=== PATIENT | female | born 1945 | race Caucasian/White ===

== ENCOUNTER 2022-05-14 01:14 | Observation (INO) | payer MEDICARE, OTHER ==
--- NOTE | 2022-05-14 02:09 | ERPHSYRPT ---
- History of Present Illness Source: patient, other (Daughter) Exam Limitations: other (Poor historian) Patient Subjective Stated Complaint: PT DAUGHTER STATES THAT PT BP HAS BEEN ELEVATED SINCE 12 AM, RADHA NELSON STATES THAT SHE HAS BEEN SICK TO HER STOMACH AND SHAKEY. JUST BEGAN TAKING ATORVASTATIN AGAIN LAST NIGHT WAS FIRST DOSE. Triage Nursing Assessment: PT IS ALERT AND ORIENTED, STATES HER LEGS ARE SHAKY, HAS NO COMPLAINTS OF PAIN, BP IS 154/88 AT THIS TIME. Physician History: 77 yo wf from assisted living facility w nausea, "shakiness", and mildly elevated blood pressure. Pt alert and oriented x3 upon arrival and in NAD. She denies focal weakness/chest pain/fever/cough/abdominal pain/dysuria/hematuria/melena/hematochezia/vomiting/diarrhea. BP adequate wo need for treatment upon arrival. Timing/Duration: today Severity: mild Modifying Factors: Improves With: nothing Associated Symptoms: denies symptoms, nausea, other (Shakiness) Allergies/Adverse Reactions: No Known Drug Allergies Allergy (Verified 05/14/22 05:02) Home Medications: Atorvastatin Calcium 40 mg PO DAILY 05/14/22 [History] Donepezil HCl 10 mg [Aricept 10 MG] 10 mg PO DAILY 05/14/22 [History] Memantine HCl [Namenda] 10 mg PO BID 05/14/22 [History] risperiDONE [Risperdal] 0.5 mg PO BID 05/14/22 [History] Travel Risk - International Travel Have you traveled outside of the country in past 3 weeks: No - Coronavirus Screening Are you exhibiting any of the following symptoms?: No Close contact with a COVID-19 positive Pt in past 14-21 Days: No - Vaccine Status Have you recieved a Covid-19 vaccination: Yes Belt Operator: Unknown - Vaccination Dates Dates if Unknown: UNKNOWN - Review of Systems Constitutional: No Symptoms Eyes: No Symptoms Ears, Nose, & Throat: No Symptoms Respiratory: No Symptoms Cardiac: No Symptoms Abdominal/Gastrointestinal: No Symptoms, Nausea Genitourinary Symptoms: No Symptoms Musculoskeletal: No Symptoms Skin: No Symptoms Neurological: No Symptoms Psychological: No Symptoms Endocrine: No Symptoms Hematologic/Lymphatic: No Symptoms Immunological/Allergic: No Symptoms - Past Medical History Pertinent Past Medical History: Yes Neurological History: Dementia Cardiac History: High Cholesterol - Past Surgical History Past Surgical History: Yes Other Surgical History: HERNIA SURGERY 2019 - Social History Smoking Status: Never smoker Exposure to second hand smoke: No Drug Use: none Significant Family History: no pertinent family hx - Nursing Vital Signs Nursing Vital Signs: Initial Vital Signs Temperature 97.5 F 05/14/22 01:21 Pain Scale Pain Intensity 0 WNL - Physical Exam General Appearance: no apparent distress, anxiety Eye Exam: PERRL/EOMI, eyes nml inspection Ears, Nose, Throat Exam: normal ENT inspection, TMs normal, pharynx normal, moist mucous membranes Neck Exam: normal inspection, non-tender, supple, full range of motion, No meningismus, No mass, No Brudzinski, No Kernig's Respiratory Exam: normal breath sounds, lungs clear, airway intact, No respiratory distress Cardiovascular Exam: regular rate/rhythm, normal heart sounds, normal peripheral pulses, capillary refill <2 sec, No murmur Gastrointestinal/Abdomen Exam: soft, normal bowel sounds, No tenderness Back Exam: normal inspection, normal range of motion, No CVA tenderness, No vertebral tenderness Extremity Exam: normal inspection, normal range of motion Neurologic Exam: alert, oriented x 3, cooperative, 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, no rmal mood/affect, nml cerebellar function, nml station & gait, sensation nml, No motor deficits, No sensory deficit Skin Exam: normal color, warm, No dry Lymphatic Exam: No adenopathy - Course Nursing assessment & vital signs reviewed: Yes EKG Interpreted by Me: RATE (NSR/Rate66/Normal QT-QTc/Low voltage/No acute St segment changes) - Radiology Exams Chest X-ray Interpretation: Interpreted by me (CXR NAD) Ordered Tests: Active Orders 24 hr Category Date Time Status EKG-ER Only STAT Care 05/14/22 02:00 Completed Heart-Healthy Diet Diet 05/14/22 Breakfast Active CHEST 1 VIEW (PORTABLE) Stat Exams 05/14/22 02:53 Taken BLOOD CULTURE Stat Lab 05/14/22 02:30 Received CBC W DIFF AM.LAB Lab 05/15/22 04:00 Ordered CBC W DIFF Stat Lab 05/14/22 02:15 Completed CMP AM.LAB Lab 05/15/22 04:00 Ordered CMP Stat Lab 05/14/22 02:15 Completed CULTURE,URINE Stat Lab 05/14/22 02:32 Received Lactic Acid AM.LAB Lab 05/15/22 04:00 Ordered Lactic Acid Stat Lab 05/14/22 02:19 Completed NT PRO BNP Stat Lab 05/14/22 02:15 Completed TROPONIN Q4H Lab 05/14/22 02:15 Completed TROPONIN Q4H Lab 05/14/22 03:27 Completed TROPONIN Q4H Lab 05/14/22 10:00 Ordered UA W/RFX CULTURE Stat Lab 05/14/22 02:32 Completed Transfer Order Routine Transfer 05/14/22 Completed Medication Summary Generic Name Dose Route Start Last Admin Trade Name Freq PRN Reason Stop Dose Admin Sodium Chloride 1,000 mls @ 100 mls/hr 05/14/22 04:15 Sodium Chloride 0.9% 1000 Ml IV 06/13/22 04:14 .Q10H ELIAZAR Ceftriaxone Sodium/Dextrose 1 g in 50 mls @ 100 mls/hr 05/14/22 10:00 Rocephin 1 Gm-D5w 50 Ml Bag IV 05/17/22 09:59 Q24H10 ELIAZAR Ondansetron HCl 4 mg 05/14/22 04:09 Ondansetron Hcl 4 Mg/2 Ml Vial IV 06/13/22 04:08 Q6H PRN PRN NAUSEA/VOMITING Discontinued Medications Generic Name Dose Route Start Last Admin Trade Name Freq PRN Reason Stop Dose Admin Ceftriaxone Sodium/Dextrose 1 g in 50 mls @ 100 mls/hr 05/14/22 04:08 05/14/22 04:31 Rocephin 1 Gm-D5w 50 Ml Bag IV 05/14/22 04:37 100 ml/hr STAT STA 100 mls/hr Administration Sodium Chloride 1,000 mls @ 999 mls/hr 05/14/22 04:12 05/14/22 04:31 Sodium Chloride 0.9% 1000 Ml IV 05/14/22 05:12 999 mls/hr .Q1H1M STA Administration Lab/Rad Data: Laboratory Result Diagrams 05/14/22 02:15 05/14/22 02:15 Laboratory Results 05/14/22 05/14/22 05/14/22 Range/Units 03:27 02:32 02:19 WBC (4.0-10.5) x10^3/uL RBC (4.1-5.4) x10^6/uL Hgb (12.0-16.0) g/dL Hct (35-47) % MCV (78-100) fL MCH (26-32) pg MCHC (32-36) g/dL RDW (11.5-14.0) % Plt Count (150-450) x10^3/uL MPV (7.5-11.0) fL Gran % (36.0-66.0) % Immature Gran % (Auto) (0.00-0.4) % Nucleat RBC Rel Count (0.00-0.1) % Eos # (Auto) (0-0.5) x10^3/uL Immature Gran # (Auto) (0.00-0.03) x10^3u/L Absolute Lymphs (auto) (1.0-4.6) x10^3/uL Absolute Monos (auto) (0.0-1.3) x10^3/uL Absolute Nucleated RBC (0.00-0.01) x10^3u/L Lymphocytes % (24.0-44.0) % Monocytes % (0.0-12.0) % Eosinophils % (0.00-5.0) % Basophils % (0.0-0.4) % Absolute Granulocytes (1.4-6.9) x10^3/uL Basophils # (0-0.4) x10^3/uL Sodium (137-145) mmol/L Potassium (3.5-5.1) mmol/L Chloride (98-107) mmol/L Carbon Dioxide (22-30) mmol/L Anion Gap (5-15) MEQ/L BUN (7-17) mg/dL Creatinine (0.52-1.04) mg/dL Estimated GFR ML/MIN Glucose (74-106) mg/dL Lactic Acid 1.2 (0.4-2.0) Calcium (8.4-10.2) mg/dL Total Bilirubin (0.2-1.3) mg/dL AST (14-36) U/L ALT (0-35) U/L Alkaline Phosphatase (38-126) U/L Troponin I 0.047 H* (0.000-0.034) ng/mL NT-Pro-B Natriuret Pep (0-1800) pg/mL Serum Total Protein (6.3-8.2) g/dL Albumin (3.5-5.0) g/dL Urinalys Dipstick Clnc MAIN LAB Urine Color YELLOW (YELLOW) Urine Appearance CLEAR (CLEAR) Urine pH 7.0 (5-6) Ur Specific [place] 1.025 (1.005-1.025) POC Urine Protein Conf NEGATIVE (Negative) Urine Ketones NEGATIVE (NEGATIVE) Urine Nitrite NEGATIVE (NEGATIVE) Urine Bilirubin NEGATIVE (NEGATIVE) Urine Urobilinogen 0.2 (0-1) mg/dL Urine Leukocytes NEGATIVE (NEGATIVE) Urine WBC (Auto) 6-10 A (0-5) /HPF Urine RBC (Auto) 0-2 (0-2) /HPF U Epithel Cells (Auto) RARE (FEW) /HPF Urine Bacteria (Auto) PACKED A (NEGATIVE) /HPF Urine RBC NEGATIVE (0-5) Luis Enrique/ul Urine Mucus (Auto) SLIGHT A (NEGATIVE) /HPF Ur Culture Indicated? YES Urine Glucose NEGATIVE (NEGATIVE) mg/dL Influenza Type A Ag (NEGATIVE) Influenza Type B Ag (NEGATIVE) RSV (PCR) (Negative) SARS-CoV-2 (PCR) (NEGATIVE) 05/14/22 05/14/22 05/14/22 Range/Units 02:15 02:15 02:15 WBC 8.7 (4.0-10.5) x10^3/uL RBC 4.58 (4.1-5.4) x10^6/uL Hgb 14.5 (12.0-16.0) g/dL Hct 44.9 (35-47) % MCV 98.0 (78-100) fL MCH 31.7 (26-32) pg MCHC 32.3 (32-36) g/dL RDW 13.4 (11.5-14.0) % Plt Count 181 (150-450) x10^3/uL MPV 10.2 (7.5-11.0) fL Gran % 80.2 H (36.0-66.0) % Immature Gran % (Auto) 0.5 H (0.00-0.4) % Nucleat RBC Rel Count 0.0 (0.00-0.1) % Eos # (Auto) 0.08 (0-0.5) x10^3/uL Immature Gran # (Auto) 0.04 H (0.00-0.03) x10^3u/L Absolute Lymphs (auto) 0.98 L (1.0-4.6) x10^3/uL Absolute Monos (auto) 0.55 (0.0-1.3) x10^3/uL Absolute Nucleated RBC 0.00 (0.00-0.01) x10^3u/L Lymphocytes % 11.3 L (24.0-44.0) % Monocytes % 6.4 (0.0-12.0) % Eosinophils % 0.9 (0.00-5.0) % Basophils % 0.7 (0.0-0.4) % Absolute Granulocytes 6.94 H (1.4-6.9) x10^3/uL Basophils # 0.06 (0-0.4) x10^3/uL Sodium 134 L (137-145) mmol/L Potassium 3.5 (3.5-5.1) mmol/L Chloride 102 (98-107) mmol/L Carbon Dioxide 28 (22-30) mmol/L Anion Gap 8.1 (5-15) MEQ/L BUN 12 (7-17) mg/dL Creatinine 0.53 (0.52-1.04) mg/dL Estimated GFR > 60.0 ML/MIN Glucose 134 H (74-106) mg/dL Lactic Acid (0.4-2.0) Calcium 8.6 (8.4-10.2) mg/dL Total Bilirubin 0.60 (0.2-1.3) mg/dL AST 51 H (14-36) U/L ALT 53 H (0-35) U/L Alkaline Phosphatase 124 (38-126) U/L Troponin I 0.042 H* (0.000-0.034) ng/mL NT-Pro-B Natriuret Pep 96.7 (0-1800) pg/mL Serum Total Protein 7.3 (6.3-8.2) g/dL Albumin 3.9 (3.5-5.0) g/dL Urinalys Dipstick Clnc Urine Color (YELLOW) Urine Appearance (CLEAR) Urine pH (5-6) Ur Specific [place] (1.005-1.025) POC Urine Protein Conf (Negative) Urine Ketones (NEGATIVE) Urine Nitrite (NEGATIVE) Urine Bilirubin (NEGATIVE) Urine Urobilinogen (0-1) mg/dL Urine Leukocytes (NEGATIVE) Urine WBC (Auto) (0-5) /HPF Urine RBC (Auto) (0-2) /HPF U Epithel Cells (Auto) (FEW) /HPF Urine Bacteria (Auto) (NEGATIVE) /HPF Urine RBC (0-5) Luis Enrique/ul Urine Mucus (Auto) (NEGATIVE) /HPF Ur Culture Indicated? Urine Glucose (NEGATIVE) mg/dL Influenza Type A Ag NEGATIVE (NEGATIVE) Influenza Type B Ag NEGATIVE (NEGATIVE) RSV (PCR) NEGATIVE (Negative) SARS-CoV-2 (PCR) NEGATIVE (NEGATIVE) - Progress Progress: improved Progress Note: 05/14/22 04:13 1L NS bolus 1gm IV Rocephin Pt w elevated troponin but no significant increase w 2nd troponin result. She had no chest pain or dyspnea in ER. DNR per Pt and daughter Discussed with : Dannie Will see patient in: hospital (observation) Counseled pt/family regarding: lab results, diagnosis, rad results - Departure Departure Disposition: Observation Clinical Impression: UTI (urinary tract infection) Condition: Stable Critical Care Time: No
[2022-05-14 02:17] LABS: Absolute Neutrophil Ct (ANC) 6.94 x10^3/uL (1.4-6.9); Basophil (Absolute #) 0.06 x10^3/uL (0-0.4); Eosinophil % 0.9 % (0.00-5.0); Eosinophil (Absolute #) 0.08 x10^3/uL (0-0.5); Hematocrit 44.9 % (35-47); Hemoglobin 14.5 g/dL (12.0-16.0); Lymphocyte (Absolute #) 0.98 x10^3/uL (1.0-4.6); Lymphocytes % 11.3 % (24.0-44.0); Mean Corpuscular Hemoglobin 31.7 pg (26-32); Mean Corpuscular Hgb Concent. 32.3 g/dL (32-36); Mean Platelet Volume 10.2 fL (7.5-11.0); Monocyte (Absolute #) 0.55 x10^3/uL (0.0-1.3); Monocytes % 6.4 % (0.0-12.0); Neutrophil % 80.2 % (36.0-66.0); Platelet Count 181 x10^3/uL (150-450); Red Blood Count 4.58 x10^6/uL (4.1-5.4); Red Cell Distribution Width 13.4 % (11.5-14.0); White Blood Count 8.7 x10^3/uL (4.0-10.5)
[2022-05-14 02:42] LABS: ALBUMIN 3.9 g/dL (3.5-5.0); ALKALINE PHOSPHATASE 124 U/L (38-126); ANION GAP 8.1 MEQ/L (5-15); BLOOD UREA NITROGEN 12 mg/dL (7-17); CHLORIDE 102 mmol/L (98-107); Calcium 8.6 mg/dL (8.4-10.2); Carbon Dioxide 28 mmol/L (22-30); Creatinine 1 0.53 mg/dL (0.52-1.04); EST GLOMERULAR FILTRATION RATE > 60.0 ML/MIN; Glucose 134 mg/dL (74-106); NT PRO BNP 96.7 pg/mL (0-1800); Potassium 3.5 mmol/L (3.5-5.1); SGOT/AST 51 U/L (14-36); SGPT/ALT 53 U/L (0-35); SODIUM 134 mmol/L (137-145); Total Protein 7.3 g/dL (6.3-8.2)
[2022-05-14 02:45] LABS: TROPONIN 0.042 ng/mL (0.000-0.034)
[2022-05-14 02:54] LABS: Appearance CLEAR (CLEAR); Bilirubin NEGATIVE (NEGATIVE); Glucose NEGATIVE (NEGATIVE); Ketones NEGATIVE (NEGATIVE); Specific Gravity 1.025 (1.005-1.025)
[2022-05-14 02:55] LABS: Dipstick done @ ? MAIN LAB; Nitrite NEGATIVE (NEGATIVE); Protein,Urine Dip NEGATIVE (Negative); RBC NEGATIVE Ery/ul (0-5); Urobilinogen 0.2 mg/dL (0-1)
[2022-05-14 02:56] LABS: INFLUENZA A NEGATIVE (NEGATIVE); INFLUENZA B NEGATIVE (NEGATIVE); RESPIRATORY SYNCTIAL VIRUS NEGATIVE (Negative); SARS-CoV-2 Xpert Express NEGATIVE (NEGATIVE)
[2022-05-14 02:59] LABS: Bacteria PACKED /HPF (NEGATIVE); Epithelial Cells RARE /HPF (FEW); Mucus SLIGHT /HPF (NEGATIVE); RBC 0-2 /HPF (0-2); Urine Cultured Indicated? YES
[2022-05-14] MEDS ORDERED: ROCEPHIN 1 Gm-D5w 50 ml Bag** 1 G/50 ML IVPB IV STA (04:08)
[2022-05-14] MEDS ORDERED: Zofran 4 MG/2 ML VIAL IV PRN (04:09)
[2022-05-14] MEDS ORDERED: Sodium Chloride 0.9% 1000 ML 1,000 ML IV STA (04:12)
--- NOTE | 2022-05-14 09:16 | PCM.HP ---
History of Present Illness - Chief Complaint Chief Complaint: c/o nausea, fever with chills for 1-2 days History of Present Illness: is a 77 year old female.from assisted living facility w nausea, "shakiness", and mildly elevated blood pressure. She denies focal weakness/chest pain/fever/cough/abdominal pain/dysuria/hematuria/melena/hematochezia/vomiting/diarrhea. - Review of Systems Constitutional: Fever, Chills, Weakness Eyes: No Symptoms Ears, Nose, & Throat: No Symptoms Respiratory: No Cough, No Short Of Breath Cardiac: No Chest Pain, No Edema, No Syncope Abdominal/Gastrointestinal: Nausea, No Abdominal Pain, No Vomiting, No Diarrhea Genitourinary Symptoms: No Dysuria Musculoskeletal: No Back Pain, No Neck Pain Skin: No Rash Neurological: No Dizziness, No Focal Weakness, No Sensory Changes Psychological: No Symptoms Endocrine: No Symptoms Hematologic/Lymphatic: No Symptoms Immunological/Allergic: No Symptoms Medications & Allergies Home Medications: Home Medication List Atorvastatin Calcium 40 mg PO DAILY 05/14/22 [History Confirmed 05/14/22] Donepezil HCl 10 mg [Aricept 10 MG] 10 mg PO DAILY 05/14/22 [History Confirmed 05/14/22] Memantine HCl [Namenda] 10 mg PO BID 05/14/22 [History Confirmed 05/14/22] risperiDONE [Risperdal] 0.5 mg PO BID 05/14/22 [History Confirmed 05/14/22] Allergies/Adverse Reactions: Allergies Allergy/AdvReac Type Severity Reaction Status Date / Time No Known Drug Allergies Allergy Verified 05/14/22 05:02 - Past Medical History Past Medical History: Yes Neurological History: Dementia ENT History: No Pertinent History Cardiac History: High Cholesterol Respiratory History: No Pertinent History Endocrine Medical History: No Pertinent History Musculoskelatal History: No Pertinent History GI Medical History: No Pertinent History History: No Pertinent History Pyscho-Social History: No Pertinent History Reproductive Disorders: No Pertinent History Comment: Pt poor historian. - Female History Are you now?: No - Past Surgical History Past Surgical History: Yes Neuro Surgical History: No Pertinent History Cardiac History: No Pertinent History Respiratory Surgery: No Pertinent History GI Surgical History: Hernia Repair Genitourinary Surgical Hx: No Pertinent History Musculskeletal Surgical Hx: No Pertinent History Female Surgical History: Tubal Ligation Other Surgical History: HERNIA SURGERY 2019 - Social History Smoking Status: Never smoker Exposure to second hand smoke: No Alcohol: None Drug Use: none Significant Family History: no pertinent family hx - Physical Exam Vital Signs: Vital Signs - 24 hr Temp Pulse Resp BP Pulse Ox 05/14/22 07:29 97.8 F 78 20 165/84 94 L 05/14/22 05:06 97.3 F 73 19 158/84 97 05/14/22 04:08 80 18 151/96 94 L 05/14/22 03:11 71 20 151/96 94 L 05/14/22 02:34 81 22 118/58 99 05/14/22 01:21 97.5 F General Appearance: no apparent distress, alert Neurologic Exam: alert, oriented x 3, cooperative, normal mood/affect, nml cerebellar function, nml station & gait, sensation nml, No motor deficits Eye Exam: PERRL/EOMI, eyes nml inspection Ears, Nose, Throat Exam: normal ENT inspection, TMs normal, pharynx normal, moist mucous membranes Neck Exam: normal inspection, non-tender, supple, full range of motion Respiratory Exam: normal breath sounds, lungs clear, No respiratory distress Cardiovascular Exam: regular rate/rhythm, normal heart sounds, normal peripheral pulses Gastrointestinal/Abdomen Exam: soft, normal bowel sounds, No tenderness, No mass Back Exam: normal inspection, normal range of motion, No CVA tenderness, No vertebral tenderness Extremity Exam: normal inspection, normal range of motion, pelvis stable Skin Exam: normal color, warm, dry, No rash Lymphatic Exam: No adenopathy Results - Labs Lab/Micro Results: Lab Results-Last 24 Hours 05/14/22 05/14/22 05/14/22 Range/Units 02:15 02:15 02:15 WBC 8.7 (4.0-10.5) x10^3/uL RBC 4.58 (4.1-5.4) x10^6/uL Hgb 14.5 (12.0-16.0) g/dL Hct 44.9 (35-47) % MCV 98.0 (78-100) fL MCH 31.7 (26-32) pg MCHC 32.3 (32-36) g/dL RDW 13.4 (11.5-14.0) % Plt Count 181 (150-450) x10^3/uL MPV 10.2 (7.5-11.0) fL Gran % 80.2 H (36.0-66.0) % Immature Gran % (Auto) 0.5 H (0.00-0.4) % Nucleat RBC Rel Count 0.0 (0.00-0.1) % Eos # (Auto) 0.08 (0-0.5) x10^3/uL Immature Gran # (Auto) 0.04 H (0.00-0.03) x10^3u/L Absolute Lymphs (auto) 0.98 L (1.0-4.6) x10^3/uL Absolute Monos (auto) 0.55 (0.0-1.3) x10^3/uL Absolute Nucleated RBC 0.00 (0.00-0.01) x10^3u/L Lymphocytes % 11.3 L (24.0-44.0) % Monocytes % 6.4 (0.0-12.0) % Eosinophils % 0.9 (0.00-5.0) % Basophils % 0.7 (0.0-0.4) % Absolute Granulocytes 6.94 H (1.4-6.9) x10^3/uL Basophils # 0.06 (0-0.4) x10^3/uL Sodium 134 L (137-145) mmol/L Potassium 3.5 (3.5-5.1) mmol/L Chloride 102 (98-107) mmol/L Carbon Dioxide 28 (22-30) mmol/L Anion Gap 8.1 (5-15) MEQ/L BUN 12 (7-17) mg/dL Creatinine 0.53 (0.52-1.04) mg/dL Estimated GFR > 60.0 ML/MIN Glucose 134 H (74-106) mg/dL Lactic Acid (0.4-2.0) Calcium 8.6 (8.4-10.2) mg/dL Total Bilirubin 0.60 (0.2-1.3) mg/dL AST 51 H (14-36) U/L ALT 53 H (0-35) U/L Alkaline Phosphatase 124 (38-126) U/L Troponin I 0.042 H* (0.000-0.034) ng/mL NT-Pro-B Natriuret Pep 96.7 (0-1800) pg/mL Serum Total Protein 7.3 (6.3-8.2) g/dL Albumin 3.9 (3.5-5.0) g/dL Urinalys Dipstick Clnc Urine Color (YELLOW) Urine Appearance (CLEAR) Urine pH (5-6) Ur Specific Salmon (1.005-1.025) POC Urine Protein Conf (Negative) Urine Ketones (NEGATIVE) Urine Nitrite (NEGATIVE) Urine Bilirubin (NEGATIVE) Urine Urobilinogen (0-1) mg/dL Urine Leukocytes (NEGATIVE) Urine WBC (Auto) (0-5) /HPF Urine RBC (Auto) (0-2) /HPF U Epithel Cells (Auto) (FEW) /HPF Urine Bacteria (Auto) (NEGATIVE) /HPF Urine RBC (0-5) Luis Enrique/ul Urine Mucus (Auto) (NEGATIVE) /HPF Ur Culture Indicated? Urine Glucose (NEGATIVE) mg/dL Influenza Type A Ag NEGATIVE (NEGATIVE) Influenza Type B Ag NEGATIVE (NEGATIVE) RSV (PCR) NEGATIVE (Negative) SARS-CoV-2 (PCR) NEGATIVE (NEGATIVE) 05/14/22 05/14/22 05/14/22 Range/Units 02:19 02:32 03:27 WBC (4.0-10.5) x10^3/uL RBC (4.1-5.4) x10^6/uL Hgb (12.0-16.0) g/dL Hct (35-47) % MCV (78-100) fL MCH (26-32) pg MCHC (32-36) g/dL RDW (11.5-14.0) % Plt Count (150-450) x10^3/uL MPV (7.5-11.0) fL Gran % (36.0-66.0) % Immature Gran % (Auto) (0.00-0.4) % Nucleat RBC Rel Count (0.00-0.1) % Eos # (Auto) (0-0.5) x10^3/uL Immature Gran # (Auto) (0.00-0.03) x10^3u/L Absolute Lymphs (auto) (1.0-4.6) x10^3/uL Absolute Monos (auto) (0.0-1.3) x10^3/uL Absolute Nucleated RBC (0.00-0.01) x10^3u/L Lymphocytes % (24.0-44.0) % Monocytes % (0.0-12.0) % Eosinophils % (0.00-5.0) % Basophils % (0.0-0.4) % Absolute Granulocytes (1.4-6.9) x10^3/uL Basophils # (0-0.4) x10^3/uL Sodium (137-145) mmol/L Potassium (3.5-5.1) mmol/L Chloride (98-107) mmol/L Carbon Dioxide (22-30) mmol/L Anion Gap (5-15) MEQ/L BUN (7-17) mg/dL Creatinine (0.52-1.04) mg/dL Estimated GFR ML/MIN Glucose (74-106) mg/dL Lactic Acid 1.2 (0.4-2.0) Calcium (8.4-10.2) mg/dL Total Bilirubin (0.2-1.3) mg/dL AST (14-36) U/L ALT (0-35) U/L Alkaline Phosphatase (38-126) U/L Troponin I 0.047 H* (0.000-0.034) ng/mL NT-Pro-B Natriuret Pep (0-1800) pg/mL Serum Total Protein (6.3-8.2) g/dL Albumin (3.5-5.0) g/dL Urinalys Dipstick Clnc MAIN LAB Urine Color YELLOW (YELLOW) Urine Appearance CLEAR (CLEAR) Urine pH 7.0 (5-6) Ur Specific Sal[place] 1.025 (1.005-1.025) POC Urine Protein Conf NEGATIVE (Negative) Urine Ketones NEGATIVE (NEGATIVE) Urine Nitrite NEGATIVE (NEGATIVE) Urine Bilirubin NEGATIVE (NEGATIVE) Urine Urobilinogen 0.2 (0-1) mg/dL Urine Leukocytes NEGATIVE (NEGATIVE) Urine WBC (Auto) 6-10 A (0-5) /HPF Urine RBC (Auto) 0-2 (0-2) /HPF U Epithel Cells (Auto) RARE (FEW) /HPF Urine Bacteria (Auto) PACKED A (NEGATIVE) /HPF Urine RBC NEGATIVE (0-5) Luis Enrique/ul Urine Mucus (Auto) SLIGHT A (NEGATIVE) /HPF Ur Culture Indicated? YES Urine Glucose NEGATIVE (NEGATIVE) mg/dL Influenza Type A Ag (NEGATIVE) Influenza Type B Ag (NEGATIVE) RSV (PCR) (Negative) SARS-CoV-2 (PCR) (NEGATIVE) - Radiology Impressions Radiology Exams & Impressions: Radiology Procedures Category Date Time Status CHEST 1 VIEW (PORTABLE) Stat Exams 05/14/22 02:53 Taken Assessment/Plan (1) UTI (urinary tract infection) Current Visit: Yes Status: Acute Qualifiers: Urinary tract infection type: acute pyelonephritis Qualified Code(s): N10 - Acute pyelonephritis Assessment & Plan: Chief Complaint Diagnosis c/o nausea, fever with chills for 1-2 days Allergies Allergy/AdvReac Type Severity Reaction Status Date / Time No Known Drug Allergies Allergy Verified 05/14/22 05:02 Vital Signs (Last 24 hours) Temp Pulse Resp BP Pulse Ox 05/14/22 07:29 97.8 F 78 20 165/84 94 L 05/14/22 05:06 97.3 F 73 19 158/84 97 05/14/22 04:08 80 18 151/96 94 L 05/14/22 03:11 71 20 151/96 94 L 05/14/22 02:34 81 22 118/58 99 05/14/22 01:21 97.5 F Home Medications Medication Instructions Recorded Confirmed Last Taken Type Atorvastatin Calcium 40 mg PO DAILY 05/14/22 05/14/22 05/13/22 20:00 History Donepezil HCl 10 mg [Aricept 10 10 mg PO DAILY 05/14/22 05/14/22 05/13/22 20:00 History MG] Memantine HCl [Namenda] 10 mg PO BID 05/14/22 05/14/22 05/13/22 20:00 History risperiDONE [Risperdal] 0.5 mg PO BID 05/14/22 05/14/22 05/13/22 20:00 History Current Medications Generic Name Dose Route Start Last Admin Trade Name Freq PRN Reason Stop Dose Admin Sodium Chloride 1,000 mls @ 100 mls/hr 05/14/22 04:15 Sodium Chloride 0.9% 1000 Ml IV 06/13/22 04:14 .Q10H ELIAZAR Ceftriaxone Sodium/Dextrose 1 g in 50 mls @ 100 mls/hr 05/14/22 22:00 Rocephin 1 Gm-D5w 50 Ml Bag IV 05/17/22 21:59 HS ELIAZAR Ondansetron HCl 4 mg 05/14/22 04:09 Ondansetron Hcl 4 Mg/2 Ml Vial IV 06/13/22 04:08 Q6H PRN PRN NAUSEA/VOMITING Discontinued Medications Generic Name Dose Route Start Last Admin Trade Name Freq PRN Reason Stop Dose Admin Ceftriaxone Sodium/Dextrose 1 g in 50 mls @ 100 mls/hr 05/14/22 04:08 05/14/22 04:31 Rocephin 1 Gm-D5w 50 Ml Bag IV 05/14/22 04:37 100 ml/hr STAT STA 100 mls/hr Administration Sodium Chloride 1,000 mls @ 999 mls/hr 05/14/22 04:12 05/14/22 04:31 Sodium Chloride 0.9% 1000 Ml IV 05/14/22 05:12 999 mls/hr .Q1H1M STA Administration Intake & Output (Last 24 hours) 05/11/22 05/12/22 05/13/22 05/14/22 11:59 11:59 11:59 11:59 Output Total 300 Balance -300 Weight 75.2 kg Microbiology Results (Last 24 hours) 05/14/22 04:18 Blood Blood Culture Gram Stain - Pending 05/14/22 04:18 Blood Blood Culture - Pending 05/14/22 02:32 Urine, Void Urine Culture - Pending Laboratory Results (Last 24 hours) 05/14/22 05/14/22 05/14/22 03:27 02:32 02:19 WBC RBC Hgb Hct MCV MCH MCHC RDW Plt Count MPV Gran % Immature Gran % (Auto) Nucleat RBC Rel Count Eos # (Auto) Immature Gran # (Auto) Absolute Lymphs (auto) Absolute Monos (auto) Absolute Nucleated RBC Lymphocytes % Monocytes % Eosinophils % Basophils % Absolute Granulocytes Basophils # Sodium Potassium Chloride Carbon Dioxide Anion Gap BUN Creatinine Estimated GFR Glucose Lactic Acid 1.2 Calcium Total Bilirubin AST ALT Alkaline Phosphatase Troponin I 0.047 H* NT-Pro-B Natriuret Pep Serum Total Protein Albumin Urinalys Dipstick Clnc MAIN LAB Urine Color YELLOW Urine Appearance CLEAR Urine pH 7.0 Ur Specific [place] 1.025 POC Urine Protein Conf NEGATIVE Urine Ketones NEGATIVE Urine Nitrite NEGATIVE Urine Bilirubin NEGATIVE Urine Urobilinogen 0.2 Urine Leukocytes NEGATIVE Urine WBC (Auto) 6-10 A Urine RBC (Auto) 0-2 U Epithel Cells (Auto) RARE Urine Bacteria (Auto) PACKED A Urine RBC NEGATIVE Urine Mucus (Auto) SLIGHT A Ur Culture Indicated? YES Urine Glucose NEGATIVE Influenza Type A Ag Influenza Type B Ag RSV (PCR) SARS-CoV-2 (PCR) 05/14/22 05/14/22 05/14/22 02:15 02:15 02:15 WBC 8.7 RBC 4.58 Hgb 14.5 Hct 44.9 MCV 98.0 MCH 31.7 MCHC 32.3 RDW 13.4 Plt Count 181 MPV 10.2 Gran % 80.2 H Immature Gran % (Auto) 0.5 H Nucleat RBC Rel Count 0.0 Eos # (Auto) 0.08 Immature Gran # (Auto) 0.04 H Absolute Lymphs (auto) 0.98 L Absolute Monos (auto) 0.55 Absolute Nucleated RBC 0.00 Lymphocytes % 11.3 L Monocytes % 6.4 Eosinophils % 0.9 Basophils % 0.7 Absolute Granulocytes 6.94 H Basophils # 0.06 Sodium 134 L Potassium 3.5 Chloride 102 Carbon Dioxide 28 Anion Gap 8.1 BUN 12 Creatinine 0.53 Estimated GFR > 60.0 Glucose 134 H Lactic Acid Calcium 8.6 Total Bilirubin 0.60 AST 51 H ALT 53 H Alkaline Phosphatase 124 Troponin I 0.042 H* NT-Pro-B Natriuret Pep 96.7 Serum Total Protein 7.3 Albumin 3.9 Urinalys Dipstick Clnc Urine Color Urine Appearance Urine pH Ur Specific [place] POC Urine Protein Conf Urine Ketones Urine Nitrite Urine Bilirubin Urine Urobilinogen Urine Leukocytes Urine WBC (Auto) Urine RBC (Auto) U Epithel Cells (Auto) Urine Bacteria (Auto) Urine RBC Urine Mucus (Auto) Ur Culture Indicated? Urine Glucose Influenza Type A Ag NEGATIVE Influenza Type B Ag NEGATIVE RSV (PCR) NEGATIVE SARS-CoV-2 (PCR) NEGATIVE Orders (Last 24 hours) Category Date Time Status Code Status Order ROUTINE Care 05/14/22 04:09 Active EKG-ER Only STAT Care 05/14/22 02:00 Completed IV Care Q6H Care 05/14/22 04:[address] in Observation ROUTINE Care 05/14/22 04:09 Active Metal Tank Builder/Discharge Plan ROUTINE Cons 05/16/22 10:00 Active Heart-Healthy Diet Diet 05/14/22 Breakfast Active CHEST 1 VIEW (PORTABLE) Stat Exams 05/14/22 02:53 Taken BLOOD CULTURE Stat Lab 05/14/22 02:30 Received CBC W DIFF AM.LAB Lab 05/15/22 04:00 Ordered CBC W DIFF Stat Lab 05/14/22 02:15 Completed CMP AM.LAB Lab 05/15/22 04:00 Ordered CMP Stat Lab 05/14/22 02:15 Completed COVID/FLU/RSV Panel Stat Lab 05/14/22 02:15 Completed CULTURE,URINE Stat Lab 05/14/22 02:32 Received Lactic Acid AM.LAB Lab 05/15/22 04:00 Ordered Lactic Acid Stat Lab 05/14/22 02:19 Completed NT PRO BNP Stat Lab 05/14/22 02:15 Completed TROPONIN Q4H Lab 05/14/22 02:15 Completed TROPONIN Q4H Lab 05/14/22 03:27 Completed TROPONIN Q4H Lab 05/14/22 10:00 Ordered UA W/RFX CULTURE Stat Lab 05/14/22 02:32 Completed Ceftriaxone 1 GM/50 ML PREMIX* [ROCEPHIN 1 Gm-D5w 50 ml Med 05/14/22 22:00 Active Bag] 1 g in 50 ml IV HS Ceftriaxone 1 GM/50 ML PREMIX* [ROCEPHIN 1 Gm-D5w 50 ml Med 05/14/22 04:08 Discontinued Bag] 1 g in 50 ml IV STAT NaCl 0.9% 1000 ml [Sodium Chloride 0.9% 1000 ML] 1,000 Med 05/14/22 04:15 Active ml IV 100 mls/hr NaCl 0.9% 1000 ml [Sodium Chloride 0.9% 1000 ML] 1,000 Med 05/14/22 04:12 Discontinued ml IV 999 mls/hr Ondansetron HCl 4 mg/2 ml [Zofran 4 MG/2 ML VIAL] Med 05/14/22 04:09 Active 4 mg IV Q6H PRN PRN Transfer Order Routine Transfer 05/14/22 Completed Code(s): N39.0 - URINARY TRACT INFECTION, SITE NOT SPECIFIED
--- NOTE | 2022-05-14 09:28 | XRAY ---
Indication: High blood pressure. Elevated troponins. Comparison: None Portable chest hyperinflated without focal infiltrate, consolidation, or large effusion. Tiny right costophrenic angle calcified granuloma. Heart not enlarged with incidental right perihilar calcified nodes. Bony thorax intact with mild osteopenia, degenerative changes, and mild levoscoliosis. Impression: Nonacute hyperinflated chest with chronic features.
[2022-05-14] MEDS: Sodium Chloride 0.9% 1000 ML 1,000 ML IV SCH ×2 (15:18→19:36)
[2022-05-14] MEDS: Aricept 10 MG PO SCH (16:18)
[2022-05-14] MEDS: ZOCOR 20MG PO SCH (16:18)
[2022-05-14] MEDS: Risperdal 1 MG PO SCH (21:54)
[2022-05-14] MEDS: Namenda 5 MG PO SCH (21:54)
[2022-05-14] MEDS ORDERED: ROCEPHIN 1 Gm-D5w 50 ml Bag** 1 G/50 ML IVPB IV SCH (22:00)
[2022-05-14] MEDS ORDERED: NON-FORMULARY ITEM (Risperidone [Risperdal] 0.5 MG Tablet) PO SCH (22:00)
[2022-05-14] MEDS ORDERED: NON-FORMULARY ITEM (Memantine Hcl [Namenda] 10 MG Tablet) PO SCH (22:00)
[2022-05-15] MEDS: Sodium Chloride 0.9% 1000 ML 1,000 ML IV SCH (01:01)
[2022-05-15 06:16] LABS: Basophil (Absolute #) 0.09 x10^3/uL (0-0.4); Eosinophil % 2.7 % (0.00-5.0); Eosinophil (Absolute #) 0.19 x10^3/uL (0-0.5); Hematocrit 41.9 % (35-47); Lymphocyte (Absolute #) 1.77 x10^3/uL (1.0-4.6); Lymphocytes % 25.6 % (24.0-44.0); Mean Cell Volume 96.8 fL (78-100); Mean Corpuscular Hemoglobin 32.3 pg (26-32); Mean Corpuscular Hgb Concent. 33.4 g/dL (32-36); Mean Platelet Volume 10.4 fL (7.5-11.0); Monocyte (Absolute #) 0.64 x10^3/uL (0.0-1.3); Monocytes % 9.3 % (0.0-12.0); Neutrophil % 60.8 % (36.0-66.0); Platelet Count 185 x10^3/uL (150-450); Red Blood Count 4.33 x10^6/uL (4.1-5.4); Red Cell Distribution Width 13.7 % (11.5-14.0); White Blood Count 6.9 x10^3/uL (4.0-10.5)
[2022-05-15 06:46] LABS: ALBUMIN 3.3 g/dL (3.5-5.0); ALKALINE PHOSPHATASE 106 U/L (38-126); ANION GAP 7.5 MEQ/L (5-15); BLOOD UREA NITROGEN 11 mg/dL (7-17); CHLORIDE 109 mmol/L (98-107); Calcium 8.5 mg/dL (8.4-10.2); Carbon Dioxide 24 mmol/L (22-30); EST GLOMERULAR FILTRATION RATE > 60.0 ML/MIN; Glucose 96 mg/dL (74-106); Potassium 3.5 mmol/L (3.5-5.1); SGOT/AST 44 U/L (14-36); SGPT/ALT 43 U/L (0-35); SODIUM 138 mmol/L (137-145); Total Protein 6.3 g/dL (6.3-8.2)
[2022-05-15] MEDS ORDERED: LIPITOR 40MG PO SCH (10:00)
[2022-05-15] MEDS: Namenda 5 MG PO SCH (10:34)
[2022-05-15] MEDS: Aricept 10 MG PO SCH (10:34)
[2022-05-15] MEDS: Risperdal 1 MG PO SCH (10:34)
[2022-05-15] MEDS: ZOCOR 20MG PO SCH (10:35)
[2022-05-15 11:58] VITALS: BP 122/82; PULSE 69; O2SAT 95
== END 2022-05-15 12:50 | disposition home or self-care (01) ==
LOC: ED 01:14 → MED SURG 04:39
PROVIDERS: ADMIT General Practice; ATTEND General Practice
DX: N10 Acute pyelonephritis (principal); N39.0 Urinary tract infection, site not specified; I10 Essential (primary) hypertension; E78.00 Pure hypercholesterolemia, unspecified; R77.8 Other specified abnormalities of plasma proteins; Z79.899 Other long term (current) drug therapy; Z20.828 Contact with and (suspected) exposure to other viral communicable diseases
CPT/HCPCS: 0241U; 36415; 71045; 80053; 81015; 83605; 83880; 84484; 85025; 87040; 87077; 87086; 87186; 93005; 96360; 96365; 99285; G0378; 96375; J0696; A9270-GY